=== PATIENT | male | born 1955 | race African-American/Black ===

== ENCOUNTER 2023-09-01 09:41 | Inpatient (IN) | payer OTHER ==
[2023-09-01 10:24] VITALS: BMI 22.6
[2023-09-01] MEDS ORDERED: guaiFENesin 600 MG TABLET.ER (FP) PO PRN (10:50)
[2023-09-01] MEDS ORDERED: ACETAMINOPHEN 325 MG TABLET (FP) PO PRN (10:50)
[2023-09-01] MEDS ORDERED: MAGNESIUM HYDROX 2400MG/30ML ORAL SUSPENSION 30 ML CUP PO PRN (10:50)
[2023-09-01] MEDS ORDERED: NICOTINE POLACRILEX 2 MG GUM BUC PRN (10:50)
[2023-09-01] MEDS ORDERED: P-EPHED 60MG/TRIPROLIDI 2.5MG TABLET PO PRN (10:50)
[2023-09-01] MEDS ORDERED: NALOXONE HCL 0.4 MG/ML VIAL IM PRN (10:50)
[2023-09-01] MEDS ORDERED: POLYETHYLENE GLYCOL (HEALTHYLAX) 3350 17 GM PACKET PO PRN (10:50)
[2023-09-01] MEDS ORDERED: LOPERAMIDE HCL 2 MG CAPSULE PO PRN (10:50)
[2023-09-01] MEDS ORDERED: NALOXONE HCL (KLOXXADO) 8 MG SPRAY NS PRN (10:50)
[2023-09-01] MEDS ORDERED: BENZONATATE 200 MG CAPSULE PO PRN (10:50)
[2023-09-01] MEDS ORDERED: BENZOCAINE/MENTHOL (CHLORASEPTIC ) LOZENGE MM PRN (10:50)
[2023-09-01] MEDS ORDERED: ONDANSETRON *ODT* 4 MG TABLET SL PRN (10:50)
[2023-09-01] MEDS: MAG HYDROX/AL HYDROX/SIMETH 30 ML UNIT-DOSE CUP PO PRN (12:45)
[2023-09-01] MEDS: PANTOPRAZOLE 40 MG TABLET PO SCH (15:07)
[2023-09-01] MEDS: THIAMINE HCL 100 MG TABLET (FP) PO SCH (22:28)
[2023-09-01] MEDS: MELATONIN 5 MG TABLETS PO SCH (22:28)
[2023-09-02] MEDS: PANTOPRAZOLE 40 MG TABLET PO SCH (10:11)
[2023-09-02] MEDS: PRENATAL VITAMINS W/ FOLIC ACID TABLET (FP) PO SCH (10:11)
[2023-09-02] MEDS: RIVAROXABAN 20 MG TABLET PO SCH (10:11)
[2023-09-02] MEDS ORDERED: cloNIDine HCL 0.1 MG TABLET PO PRN (10:55)
[2023-09-02 11:20] LABS: HEMATOCRIT 42.8 % (35.4-49); MCH 28.2 pg (25.7-33.7); MCHC 32.6 g/dl (32.0-35.9); MEAN CELL VOLUME 86.6 fl (80-96); MEAN PLT VOLUME 8.4 fl (7.5-11.1); PLATELET COUNT 269 10^3/uL (134-434); RBC 4.95 M/mm3 (4.00-5.60); RDW 14.1 % (11.9-15.9); WHITE BLOOD COUNT 4.8 K/mm3 (4.0-10.0)
[2023-09-02 11:44] LABS: CHLORIDE 106 mmol/L (98-107); POTASSIUM 3.9 mmol/L (3.5-5.1); SODIUM 142 mmol/L (136-145)
[2023-09-02] MEDS: diazePAM 5 MG TABLET PO SCH ×3 (11:51→22:31)
[2023-09-02 11:58] LABS: ALBUMIN 3.6 g/dl (3.4-5.0); ANION GAP 6 mmol/L (4-13); CALCIUM 8.9 mg/dL (8.5-10.1); CO2 29 mmol/L (21-32); GLUCOSE,RANDOM 94 mg/dL (74-106)
[2023-09-02 11:59] LABS: BLOOD UREA NITROGEN 6.3 mg/dL (7-18)
[2023-09-02 12:01] LABS: CREATININE 0.9 mg/dL (0.55-1.3)
[2023-09-02 12:02] LABS: SGOT/AST 23 U/L (15-37)
[2023-09-02 12:03] LABS: BILIRUBIN,TOTAL 1.1 mg/dL (0.2-1); TOT PROT 7.1 g/dl (6.4-8.2)
[2023-09-02 12:04] LABS: ALK PHOS 74 U/L (45-117)
[2023-09-02 12:14] LABS: SGPT/ALT 17 U/L (13-61)
[2023-09-02] MEDS: QUEtiapine FUMARATE 50 MG TABLET PO SCH (22:31)
[2023-09-02] MEDS: THIAMINE HCL 100 MG TABLET (FP) PO SCH (22:31)
[2023-09-02] MEDS: MELATONIN 5 MG TABLETS PO SCH (22:31)
[2023-09-03] MEDS: diazePAM 5 MG TABLET PO SCH ×4 (05:55→22:31)
[2023-09-03] MEDS ORDERED: methaDONE HCL 10 MG TABLET (FOR DETOX USE ONLY) PO ONE (10:00)
[2023-09-03] MEDS: PRENATAL VITAMINS W/ FOLIC ACID TABLET (FP) PO SCH (10:27)
[2023-09-03] MEDS: RIVAROXABAN 20 MG TABLET PO SCH (10:27)
[2023-09-03] MEDS: PANTOPRAZOLE 40 MG TABLET PO SCH (10:27)
[2023-09-03] MEDS: FLUoxetine HCL 20 MG CAPSULE PO SCH (10:27)
[2023-09-03] MEDS ORDERED: LACTULOSE 20 GM/30 ML UDC (FOR ORAL USE ONLY) PO ONE (11:36)
[2023-09-03] MEDS: LACTULOSE 20 GM/30 ML UDC (FOR ORAL USE ONLY) PO SCH ×2 (16:18→22:31)
[2023-09-03] MEDS: THIAMINE HCL 100 MG TABLET (FP) PO SCH (22:31)
[2023-09-03] MEDS: QUEtiapine FUMARATE 50 MG TABLET PO SCH (22:31)
[2023-09-03] MEDS: MELATONIN 5 MG TABLETS PO SCH (22:31)
[2023-09-04] MEDS: diazePAM 5 MG TABLET PO SCH ×3 (05:48→22:56)
[2023-09-04] MEDS: LACTULOSE 20 GM/30 ML UDC (FOR ORAL USE ONLY) PO SCH ×3 (05:48→22:53)
[2023-09-04] MEDS: FLUoxetine HCL 20 MG CAPSULE PO SCH (10:29)
[2023-09-04] MEDS: PANTOPRAZOLE 40 MG TABLET PO SCH (10:29)
[2023-09-04] MEDS: PRENATAL VITAMINS W/ FOLIC ACID TABLET (FP) PO SCH (10:29)
[2023-09-04] MEDS: diazePAM 5 MG TABLET PO PRN (10:30)
[2023-09-04] MEDS: RIVAROXABAN 20 MG TABLET PO SCH (10:31)
[2023-09-04] MEDS: MAG HYDROX/AL HYDROX/SIMETH 30 ML UNIT-DOSE CUP PO PRN (13:42)
[2023-09-04] MEDS: QUEtiapine FUMARATE 50 MG TABLET PO SCH (22:54)
[2023-09-04] MEDS: MELATONIN 5 MG TABLETS PO SCH (22:54)
[2023-09-04] MEDS: THIAMINE HCL 100 MG TABLET (FP) PO SCH (23:00)
[2023-09-05] MEDS: LACTULOSE 20 GM/30 ML UDC (FOR ORAL USE ONLY) PO SCH (06:01)
[2023-09-05] MEDS: diazePAM 5 MG TABLET PO SCH ×2 (06:01→17:22)
[2023-09-05] MEDS: diazePAM 5 MG TABLET PO PRN (09:53)
[2023-09-05] MEDS: RIVAROXABAN 20 MG TABLET PO SCH (09:53)
[2023-09-05] MEDS: FLUoxetine HCL 20 MG CAPSULE PO SCH (09:53)
[2023-09-05] MEDS: PRENATAL VITAMINS W/ FOLIC ACID TABLET (FP) PO SCH (09:53)
[2023-09-05] MEDS: PANTOPRAZOLE 40 MG TABLET PO SCH (09:53)
[2023-09-05] MEDS ORDERED: methaDONE HCL 10 MG TABLET (FOR DETOX USE ONLY) PO ONE (10:00)
[2023-09-05] MEDS: QUEtiapine FUMARATE 50 MG TABLET PO SCH (22:27)
[2023-09-05] MEDS: THIAMINE HCL 100 MG TABLET (FP) PO SCH (22:27)
[2023-09-05] MEDS: MELATONIN 5 MG TABLETS PO SCH (22:27)
[2023-09-06] MEDS ORDERED: diazePAM 5 MG TABLET PO ONE (06:00)
[2023-09-06 09:16] VITALS: BP 100/67; PULSE 69; RESP 16; TEMP 97.8
[2023-09-06] MEDS: PRENATAL VITAMINS W/ FOLIC ACID TABLET (FP) PO SCH (10:18)
[2023-09-06] MEDS: FLUoxetine HCL 20 MG CAPSULE PO SCH (10:18)
[2023-09-06] MEDS: PANTOPRAZOLE 40 MG TABLET PO SCH (10:18)
[2023-09-06] MEDS: RIVAROXABAN 20 MG TABLET PO SCH (10:18)
== END 2023-09-06 10:27 | disposition home or self-care (01) | DRG 897 ==
LOC: YASAS 09:41 → Y3N 11:33
PROVIDERS: ADMIT Allergy & Immunology; ATTEND Surgery
PROC: HZ2ZZZZ Detoxification Services for Substance Abuse Treatment (ICD-10-PCS; principal; 2023-09-01)
DX: F11.23 Opioid dependence with withdrawal (principal); F10.230 Alcohol dependence with withdrawal, uncomplicated; F14.10 Cocaine abuse, uncomplicated; F17.210 Nicotine dependence, cigarettes, uncomplicated; F25.9 Schizoaffective disorder, unspecified; I10 Essential (primary) hypertension; K56.41 Fecal impaction; Z86.718 Personal history of other venous thrombosis and embolism; Z79.01 Long term (current) use of anticoagulants
CPT/HCPCS: 36415; 74018-TC-FY; 80053; 80307; 85027; 86780; 87635; 87811; 93005; 93010